=== PATIENT | male | born 1960 | race Two or more races ===

== ENCOUNTER 2024-07-08 16:55 | Emergency (ER) | payer BC ==
[~2024-07-08] VITALS: Ht 167.6 cm; Wt 79.4 kg
[2024-07-08] MEDS ORDERED: MECLIZINE HCL 25 MG TABLET ONE (17:31)
[2024-07-08] MEDS: MECLIZINE HCL 12.5 MG TABLET PO ONE (17:34)
[2024-07-08 17:37] LABS: BASOPHILS % (AUTO) 0.8 % (0.0-2.0); EOSINOPHILS # (AUTO) 0.1 K/uL (0.0-0.7); EOSINOPHILS % (AUTO) 2.1 % (0.0-6.0); HEMATOCRIT 39 % (39-51); HEMOGLOBIN 13.2 g/dL (13.5-17.5); LYMPHOCYTES % (AUTO) 38.6 % (20.0-44.0); MEAN CORPUSCULAR HEMOGLOBIN 34 PG (26.0-33.0); MEAN CORPUSCULAR HGB CONC 34 g/dl (31.0-36.0); MEAN CORPUSCULAR VOLUME 98 fL (80-96); MONOCYTES # (AUTO) 0.5 K/uL (0.1-1.30); MONOCYTES % (AUTO) 10.1 % (2.0-12.0); NEUTROPHILS # (AUTO) 2.5 K/uL (1.8-8.9); NEUTROPHILS % (AUTO) 48.4 % (43.0-81.0); PLATELET COUNT (AUTO) 191 K/uL (150-450); RED BLOOD CELL COUNT(AUTO) 3.93 MIL/uL (4.5-6.0); RED CELL DISTRIBUTION WIDTH 12.3 % (11.5-15.0); WHITE BLOOD COUNT (AUTO) 5.1 K/uL (4.3-11.0)
[2024-07-08 17:44] LABS: CARBON DIOXIDE 30 mmol/L (21-32); CHLORIDE 98 mmol/L (98-107); CREATININE 1.4 mg/dL (0.6-1.3); GLUCOSE 94 mg/dL (74-106); POTASSIUM 3.1 mmol/L (3.5-5.1); SODIUM SERUM 135 mmol/L (136-145); UREA NITROGEN, BLOOD 21 mg/dL (7-18)
[2024-07-08 17:57] LABS: ALANINE AMINOTRANSFERASE 26 U/L (12-78); ALKALINE PHOSPHATASE 40 U/L (46-116); ASPARTATE AMINOTRANSFERASE 16 U/L (15-37); BILIRUBIN,DIRECT 0.1 mg/dL (0.0-0.2); BILIRUBIN,TOTAL 0.5 mg/dL (0.2-1.0); NT-PRO BNP 40 pg/mL (0-125); TOTAL PROTEIN, SERUM 7.5 g/dL (6.4-8.2)
[2024-07-08] MEDS ORDERED: POTASSIUM CHLORIDE 20 MEQ POWDER PACKET ONE (19:03)
[2024-07-08] MEDS: POTASSIUM CHLORIDE 20 MEQ POWDER PACKET PO ONE (19:04)
[2024-07-08] MEDS ORDERED: MECL-159 PO (20:38)
[2024-07-08 20:47] VITALS: BP 130/92; TEMP 98.6; O2SAT 98
== END 2024-07-08 20:48 | disposition home or self-care (01) ==
LOC: ER 17:15
DX: I10 Essential (primary) hypertension (principal); E78.00 Pure hypercholesterolemia, unspecified; Z88.2 Allergy status to sulfonamides; R42 Dizziness and giddiness
CPT/HCPCS: 99285; 70450; 71045; 93005; 85025; 80048; 80076; 36415; 84484; 83880; 82962; J8597

== ENCOUNTER 2024-11-28 14:30 | Inpatient (IN) | payer BC ==
[~2024-11-28] VITALS: Ht 167.6 cm; Wt 77.1 kg
[~2024-11-28 14:30] MED LIST: MECL-159 PO
[2024-11-28] MEDS ORDERED: EPINEPHRINE (1:1000) 1 MG/ML AMPUL ONE ×2 (14:44→18:27)
[2024-11-28] MEDS ORDERED: diphenhydrAMINE HCL 50 MG/ML VIAL ONE ×2 (14:44→22:46)
[2024-11-28] MEDS ORDERED: methylPREDNISolone SOD SUCC 125 MG/2ML VIAL ONE ×2 (14:44→22:46)
[2024-11-28] MEDS ORDERED: FAMOTIDINE/PF INJ 20 MG/2 ML VIAL IV ONE ×2 (14:45→22:47)
[2024-11-28] MEDS: EPINEPHRINE (1:1000) 1 MG/ML AMPUL IM ONE (14:50)
[2024-11-28 14:52] LABS: BASOPHILS % (AUTO) 0.5 % (0.0-2.0); EOSINOPHILS # (AUTO) 0.1 K/uL (0.0-0.7); EOSINOPHILS % (AUTO) 0.7 % (0.0-6.0); HEMATOCRIT 44 % (39-51); HEMOGLOBIN 14.7 g/dL (13.5-17.5); LYMPHOCYTES # (AUTO) 1.6 K/uL (0.8-4.8); LYMPHOCYTES % (AUTO) 19.6 % (20.0-44.0); MEAN CORPUSCULAR HEMOGLOBIN 33 PG (26.0-33.0); MEAN CORPUSCULAR HGB CONC 34 g/dl (31.0-36.0); MEAN CORPUSCULAR VOLUME 97 fL (80-96); MONOCYTES # (AUTO) 0.6 K/uL (0.1-1.30); MONOCYTES % (AUTO) 7.6 % (2.0-12.0); NEUTROPHILS # (AUTO) 5.9 K/uL (1.8-8.9); NEUTROPHILS % (AUTO) 71.6 % (43.0-81.0); PLATELET COUNT (AUTO) 185 K/uL (150-450); RED BLOOD CELL COUNT(AUTO) 4.52 MIL/uL (4.5-6.0); RED CELL DISTRIBUTION WIDTH 12.7 % (11.5-15.0); WHITE BLOOD COUNT (AUTO) 8.3 K/uL (4.3-11.0)
[2024-11-28] MEDS: methylPREDNISolone SOD SUCC 125 MG/2ML VIAL IV ONE (14:52)
[2024-11-28] MEDS: FAMOTIDINE/PF INJ 20 MG/2 ML VIAL IV ONE (14:54)
[2024-11-28] MEDS: diphenhydrAMINE HCL 50 MG/ML VIAL IV ONE (14:56)
[2024-11-28] MEDS ORDERED: ONDANSETRON HCL/PF 4 MG/2 ML VIAL ONE (15:10)
[2024-11-28] MEDS ORDERED: MORPHINE SULFATE INJ 4 MG/ML DISP.SYRIN ONE (15:10)
[2024-11-28 15:13] LABS: ALBUMIN 4.2 g/dL (3.4-5.0); BILIRUBIN,DIRECT 0.2 mg/dL (0.0-0.2); BILIRUBIN,TOTAL 0.7 mg/dL (0.2-1.0); CALCIUM, SERUM 9.2 mg/dL (8.5-10.1); CREATININE 1.3 mg/dL (0.6-1.3); POTASSIUM 3.3 mmol/L (3.5-5.1)
[2024-11-28] MEDS: ONDANSETRON HCL/PF - ER 4 MG/2 ML VIAL IV ONE (15:28)
[2024-11-28] MEDS: MORPHINE SULFATE INJ 2 MG/ML DISP.SYRIN IV ONE (15:28)
[2024-11-28] MEDS: TRANEXAMIC ACID 1,000 MG in IV NS 0.9% 100 ML IV ONE (15:31)
[2024-11-28] MEDS ORDERED: IOHEXOL-300 100 ML VIAL IV ONE (18:29)
[2024-11-28] MEDS: EPINEPHRINE (1:1000) 1 MG/ML AMPUL SUBCUT ONE (18:34)
[2024-11-28] MEDS ORDERED: ONDANSETRON HCL/PF 4 MG/2 ML VIAL IVP PRN (20:00)
[2024-11-28] MEDS ORDERED: hydrALAZINE HCL IV 20 MG VIAL IV PRN (20:00)
[2024-11-28] MEDS ORDERED: ALBUTEROL FS 2.5 MG/0.5 ML VIAL.NEB NEB PRN (20:00)
[2024-11-28] MEDS ORDERED: ACETAMINOPHEN 325 MG TABLET PO PRN (20:00)
[2024-11-28] MEDS ORDERED: MORPHINE SULFATE INJ 2 MG/ML DISP.SYRIN IV PRN (20:00)
[2024-11-28] MEDS ORDERED: HEPARIN SODIUM, PORCINE 5000 UNITS/1 ML VIAL ONE (21:32)
[2024-11-28] MEDS: HEPARIN SODIUM, PORCINE 5000 UNITS/1 ML VIAL SQ SCH (21:38)
[2024-11-28] MEDS: diphenhydrAMINE HCL 50 MG/ML VIAL IV SCH (22:58)
[2024-11-28] MEDS: FAMOTIDINE/PF INJ 20 MG/2 ML VIAL IV SCH (22:58)
[2024-11-28] MEDS: methylPREDNISolone SOD SUCC 125 MG/2ML VIAL IV SCH (22:58)
[2024-11-29 05:25] LABS: BASOPHILS % (AUTO) 0.1 % (0.0-2.0); HEMATOCRIT 41 % (39-51); HEMOGLOBIN 14.1 g/dL (13.5-17.5); LYMPHOCYTES # (AUTO) 0.6 K/uL (0.8-4.8); LYMPHOCYTES % (AUTO) 11.9 % (20.0-44.0); MEAN CORPUSCULAR HEMOGLOBIN 33 PG (26.0-33.0); MEAN CORPUSCULAR HGB CONC 34 g/dl (31.0-36.0); MEAN CORPUSCULAR VOLUME 97 fL (80-96); MONOCYTES # (AUTO) 0.1 K/uL (0.1-1.30); MONOCYTES % (AUTO) 2.9 % (2.0-12.0); NEUTROPHILS # (AUTO) 4.2 K/uL (1.8-8.9); NEUTROPHILS % (AUTO) 85.1 % (43.0-81.0); PLATELET COUNT (AUTO) 188 K/uL (150-450); RED BLOOD CELL COUNT(AUTO) 4.24 MIL/uL (4.5-6.0); RED CELL DISTRIBUTION WIDTH 12.6 % (11.5-15.0); WHITE BLOOD COUNT (AUTO) 4.9 K/uL (4.3-11.0)
[2024-11-29 06:01] LABS: POTASSIUM 4.4 mmol/L (3.5-5.1)
[2024-11-29 06:02] LABS: BILIRUBIN,TOTAL 0.6 mg/dL (0.2-1.0); CALCIUM, SERUM 8.9 mg/dL (8.5-10.1)
[2024-11-29 06:04] LABS: ALBUMIN 3.8 g/dL (3.4-5.0); MAGNESIUM 2.3 mg/dL (1.8-2.4); TOTAL PROTEIN, SERUM 7.6 g/dL (6.4-8.2)
[2024-11-29] MEDS ORDERED: methylPREDNISolone SOD SUCC 125 MG/2ML VIAL ONE ×2 (06:08→13:09)
[2024-11-29] MEDS ORDERED: diphenhydrAMINE HCL 50 MG/ML VIAL ONE ×2 (06:08→13:09)
[2024-11-29 06:36] LABS: ABG BASE EXCESS -0.2 mmol/L (-2.0-3.0); ABG OXYGEN SATURATION 95.7 % (94.0-98.0); ABG PCO2 36.2 mmHg (35.0-48.0); ABG PH 7.433 (7.350-7.450); ABG PO2 80.4 mmHg (83.0-108.0); ABG TOTAL HEMOGLOBIN 14.8 G/dL (13.5-17.5); MetHb 0.5 % (0.0-1.5); O2Hb 95.2 % (94.0-97.0); SITE, ABG LEFT RADIAL
[2024-11-29] MEDS ORDERED: FAMOTIDINE/PF INJ 20 MG/2 ML VIAL IV ONE (08:59)
[2024-11-29] MEDS ORDERED: HEPARIN SODIUM, PORCINE 5000 UNITS/1 ML VIAL ONE (08:59)
[2024-11-29] MEDS ORDERED: LOSA1TAB42 PO (08:59)
[2024-11-29] MEDS ORDERED: ROSU40TA23 PO (08:59)
[2024-11-29] MEDS ORDERED: DEXTROSE 50%-WATER 50 ML DISP.SYRIN IV PRN (09:30)
[2024-11-29] MEDS: BLOOD SUGAR DIAGNOSTIC 1 EACH STRIP IN SCH (12:45)
[2024-11-29] MEDS: INSULIN REGULAR, HUMAN 100 UNIT/ML 3 ML VIAL SQ PRN (12:45)
[2024-11-29] MEDS ORDERED: INSULIN REGULAR, HUMAN 100 UNIT/ML 10 ML VIAL ONE (12:52)
[2024-11-29 18:00] VITALS: BP 112/67; TEMP 98.3; O2SAT 95
[2024-11-29 20:00] VITALS: BP 127/65; TEMP 98.2; O2SAT 94
[2024-11-30 04:00] VITALS: BP 122/62; TEMP 98.6; O2SAT 95
[2024-11-30 07:13] LABS: HEMATOCRIT 40 % (39-51); HEMOGLOBIN 13.7 g/dL (13.5-17.5); LYMPHOCYTES # (AUTO) 0.8 K/uL (0.8-4.8); LYMPHOCYTES % (AUTO) 7.8 % (20.0-44.0); MEAN CORPUSCULAR HEMOGLOBIN 33 PG (26.0-33.0); MEAN CORPUSCULAR HGB CONC 34 g/dl (31.0-36.0); MEAN CORPUSCULAR VOLUME 97 fL (80-96); MONOCYTES # (AUTO) 0.4 K/uL (0.1-1.30); MONOCYTES % (AUTO) 4.3 % (2.0-12.0); NEUTROPHILS # (AUTO) 8.8 K/uL (1.8-8.9); NEUTROPHILS % (AUTO) 87.9 % (43.0-81.0); PLATELET COUNT (AUTO) 186 K/uL (150-450); RED BLOOD CELL COUNT(AUTO) 4.16 MIL/uL (4.5-6.0); RED CELL DISTRIBUTION WIDTH 12.9 % (11.5-15.0)
[2024-11-30 07:42] LABS: CALCIUM, SERUM 9.1 mg/dL (8.5-10.1); MAGNESIUM 2.5 mg/dL (1.8-2.4); PHOSPHORUS 2.6 mg/dL (2.5-4.9); POTASSIUM 4.3 mmol/L (3.5-5.1)
[2024-11-30 08:00] VITALS: BP 114/87; TEMP 98.2; O2SAT 94
[2024-11-30] MEDS ORDERED: FAMO-131 PO (13:17)
[2024-11-30] MEDS ORDERED: METH4TAB3 PO (13:17)
== END 2024-11-30 14:17 | disposition home or self-care (01) | DRG 916 ==
LOC: ER 14:37 → ICU IN 22:28 → TELE 11-29 14:45
PROVIDERS: ADMIT Internal Medicine; ATTEND Student in an Organized Health Care Education/Training Program
DX: T78.3XXA Angioneurotic edema, initial encounter (principal); E87.6 Hypokalemia; R73.9 Hyperglycemia, unspecified; G47.00 Insomnia, unspecified; I10 Essential (primary) hypertension; Z88.2 Allergy status to sulfonamides; T48.295A Adverse effect of other drugs acting on muscles, initial encounter; Y83.8 Other surgical procedures as the cause of abnormal reaction of the patient, or of later complication, without mention of misadventure at the time of the procedure; Y81.8 Miscellaneous general- and plastic-surgery devices associated with adverse incidents, not elsewhere classified; Y92.531 Health care provider office as the place of occurrence of the external cause
CPT/HCPCS: 36415; 70487-TC; 71045-TC; 80048-TC; 80053-TC; 80076-TC; 82962-TC; 83735-TC; 84100-TC; 85025-TC; 86850-TC; A4223; G0378; J0171; J1200; J1644; J1815; J2270; J2405; J2919; J3490; J7030; Q9967